=== PATIENT | male | born 1980 | race Two or more races ===

== ENCOUNTER 2024-12-08 00:09 | Emergency (ER) | payer OTHER ==
[~2024-12-08] VITALS: Ht 175.3 cm; Wt 86.2 kg
[2024-12-08] MEDS ORDERED: TDAP [DIPH/PERTUSSIS/TET] 0.5 ML VIAL IM ONE (00:28)
[2024-12-08] MEDS ORDERED: HYDROCODONE/APAP 5/325MG TABLET ONE (00:28)
[2024-12-08] MEDS: HYDROCODONE/APAP 5/325MG TABLET PO ONE (00:30)
[2024-12-08] MEDS: TDAP [DIPH/PERTUSSIS/TET] 0.5 ML VIAL IM ONE (00:30)
[2024-12-08 01:41] VITALS: BP 122/74; TEMP 98.1; O2SAT 99
== END 2024-12-08 01:44 | disposition home or self-care (01) ==
LOC: ER 00:14
DX: S01.111A Laceration without foreign body of right eyelid and periocular area, initial encounter (principal); Y09 Assault by unspecified means; Y93.89 Activity, other specified; Y92.89 Other specified places as the place of occurrence of the external cause; Y99.8 Other external cause status
CPT/HCPCS: 70450-TC; 70486-TC; 72125-TC; 90715